=== PATIENT | female | born 2000 | race Caucasian/White ===

== ENCOUNTER 2024-04-28 14:49 | Emergency (ER) | payer BC, OTHER ==
[~2024-04-28] VITALS: Ht 165.1 cm; Wt 60.9 kg
[~2024-04-28 14:49] MED LIST: DEPO-MEDRO20 MG/1 ML INJ; MACROBID 100 M100 MG PO
[2024-04-28] MEDS ORDERED: SODIUM CHLORIDE 0.9% 1,000 ML IV PRN (15:45)
[2024-04-28] MEDS ORDERED: ondansetron HCL 4 MG/2 ML VIAL IV ONE (15:45)
[2024-04-28 16:00] LABS: BASOPHILS 0.4 % (0-2); EOSINOPHILS 0.2 % (0-6); HEMATOCRIT 32.1 % (35.0-50.0); HEMOGLOBIN 11.3 g/dL (12.0-18.0); LYMPHOCYTES 13.8 % (24-44); MCH 30.6 (27-36); MCHC 35.2 g/dl (30-36); MCV 86.9 fl (81-99); MONOCYTES 20.2 % (0-12); NEUTROPHILS 65.4 % (39-80); PLATELET COUNT 165 K/uL (140-440); RBC 3.69 M/ul (4.3-5.7); RDW 12.5 (10.5-15.0)
[2024-04-28 16:16] LABS: ALBUMIN 2.7 g/dL (3.4-5.0); ALBUMIN/GLOBULIN RATIO 0.68 (1.1-2.4); ANION GAP 12.7 (7-21); BILIRUBIN, TOTAL 0.2 ng/dL (0.2-1.0); BUN/CREATININE RATIO 12.76 (6.0-28.6); CALCIUM 8.5 mg/dL (8.5-10.1); CREATININE, SERUM 0.47 mg/dL (0.55-1.02); POTASSIUM 3.7 mmol/L (3.5-5.1); PROTEIN, TOTAL 6.7 g/dL (6.4-8.2)
[2024-04-28 16:40] LABS: INFLUENZA B NAA NEGATIVE (NEGATIVE); RESPIRATORY SYNCYTIAL VIR NAA NEGATIVE (NEGATIVE)
[2024-04-28 16:47] LABS: BILIRUBIN, URINE NEGATIVE (negative); BLOOD/HGB, URINE LARGE (Negative); KETONE, URINE NEGATIVE (Negative); LEUK ESTERASE, URINE NEGATIVE (negative); NITRITE, URINE NEGATIVE (negative)
[2024-04-28 16:57] LABS: BACTERIA, URINE 1+ /hpf (negative); CRYSTALS, URINE NONE SEEN (0-1+); EPITHELIAL CELLS, URINE SQUAMOUS 4+ /lpf (0-1+); RED BLOOD CELLS, URINE >50 /hpf (0-5)
[2024-04-28 16:58] LABS: CASTS, URINE NONE SEEN \\lpf; COLLECTION TYPE, URINE CLEAN CATCH; REFLEX CULTURE, URINE No (No)
[2024-04-28 17:57] VITALS: BP 109/75
== END 2024-04-28 17:57 | disposition home or self-care (01) ==
LOC: ED 14:49
PROVIDERS: Emergency Medicine
DX: O98.512 Other viral diseases complicating pregnancy, second trimester (principal); U07.1 COVID-19; Z3A.23 23 weeks gestation of pregnancy
CPT/HCPCS: 36415; 80053; 81001; 83690; 85025; 87502; 99284; J7030; U0002

== ENCOUNTER 2024-10-01 02:54 | Observation (INO) | payer BC, OTHER ==
[~2024-10-01] VITALS: Ht 165.1 cm; Wt 65.8 kg
[2024-10-01] VITALS (7 sets, daily range): BP systolic 103–125; BP diastolic 52–80
[2024-10-01] MEDS ORDERED: ondansetron HCL 4 MG/2 ML VIAL IV ONE (03:15)
[2024-10-01] MEDS ORDERED: FAMOTIDINE 20 MG/ 2 ML VIAL IV ONE (03:30)
[2024-10-01] MEDS ORDERED: KETOROLAC TROMETHAMINE 30 MG/ML VIAL IV ONE (03:30)
[2024-10-01] MEDS ORDERED: LIDOCAINE & ANTACID 35 ML BTL PO ONE (03:30)
[2024-10-01 03:54] LABS: BASOPHILS 0.6 % (0-2); EOSINOPHILS 2.3 % (0-6); HEMATOCRIT 38.8 % (35.0-50.0); HEMOGLOBIN 12.7 g/dL (12.0-18.0); MCH 24.8 (27-36); MCHC 32.8 g/dl (30-36); MCV 75.6 fl (81-99); MONOCYTES 7.7 % (0-12); NEUTROPHILS 67.4 % (39-80); PLATELET COUNT 203 K/uL (140-440); RBC 5.13 M/ul (4.3-5.7); RDW 17.6 (10.5-15.0)
[2024-10-01] MEDS ORDERED: LACTATED RINGER'S 1,000 ML IV ONE (04:00)
[2024-10-01 04:09] LABS: ALBUMIN/GLOBULIN RATIO 0.98 (1.1-2.4); BILIRUBIN, TOTAL 0.3 mg/dL (0.2-1.0); BUN/CREATININE RATIO 27.84 (6.0-28.6); CALCIUM 9.6 mg/dL (8.5-10.1); CREATININE, SERUM 0.79 mg/dL (0.55-1.02); MAGNESIUM 2.2 mg/dL (1.8-2.4); PROTEIN, TOTAL 8.1 g/dL (6.4-8.2)
[2024-10-01] MEDS ORDERED: LACTATED RINGER'S 1,000 ML IV SCH (05:00)
[2024-10-01] MEDS ORDERED: ondansetron HCL 4 MG/2 ML VIAL IV PRN ×3 (05:00→12:15)
[2024-10-01] MEDS ORDERED: KETOROLAC TROMETHAMINE 30 MG/ML VIAL IV PRN (05:00)
[2024-10-01] MEDS ORDERED: metroNIDAZOLE/SODIUM CHLORIDE 500 MG/100 ML PIGGYBACK IV ONE (05:00)
[2024-10-01] MEDS ORDERED: CEFTRIAXONE SODIUM 2 GM in SODIUM CHLORIDE 0.9% 100 ML IV ONE (05:00)
[2024-10-01 05:05] LABS: INR 0.99 (0.80-1.30); PROTIME 12.9 Sec (11.2-14.2)
[2024-10-01] MEDS ORDERED: CEFTRIAXONE SODIUM 2 GM VIAL ONE (05:33)
--- NOTE | 2024-10-01 06:57 | NUR ---
SCHEDULED MEDICATIONS ADMIN PER MAR. PATIENT DENIES ANY OTHER NEEDS, CALL LIGHT IN REACH.
[2024-10-01] MEDS ORDERED: DEXTROSE 5% - LACTATED RINGERS 1,000 ML IV SCH (07:00)
[2024-10-01] MEDS ORDERED: PROCHLORPERAZINE EDISYLATE 10 MG/2 ML VIAL IV PRN (07:00)
[2024-10-01] MEDS ORDERED: HYDROmorphone HCL 1 MG/ML SYR IV PRN (07:00)
--- NOTE | 2024-10-01 07:11 | NUR ---
REPORT RECEIVED FROM PLASMA PROCESSING TECHNICIAN RN DAVID. PATIENT IS SITTING UP IN BED AND PUMPING. PATIENT MOM IS IN THE ROOM. PATIENT WITH NO COMPLAINTS OF PAIN. PATIENT STATED NO FURTHER NEEDS AT THIS TIME. CALL LIGHT AND PERSONAL BELONGINGS ARE WITHIN REACH.
[2024-10-01] MEDS ORDERED: OXYCODONE HCL 5 MG TAB PO PRN (07:15)
[2024-10-01] MEDS ORDERED: IBUPROFEN 800 MG TAB PO PRN (07:15)
[2024-10-01] MEDS ORDERED: ACETAMINOPHEN 325 MG TAB PO PRN (07:15)
--- NOTE | 2024-10-01 07:45 | NUR ---
0900 MEDICATION ADMINISTERED PER THE EMAR. D5LR @100 ML/HR IS IN THE ROOM TO BEGIN AFTER FLAGYL DOSE IS COMPLETE. FULL ASSESSMENT COMPLETE AND DOCUMENTED IN THE CHART. PATIENT IS ALERT AND ORIENTED TIMES FOUR. PATIENT WITH NO COMPLAINTS OF PAIN OR NAUSEA AT THIS TIME. PATIENT WITH NORMAL S1 AND S2 ON AUSCULTATION. RADIAL AND PEDAL PULSES ARE STRONG BILATERALLY. SENSATION INTACT WITH NO COMPLAINTS OF NUMBNESS OR TINGLING. NO EDEMA NOTED. SKIN INTACT WITH SCATTERED TATTOOS NOTED. PATIENT IS ON ROOM AIR WITH CLEAR LUNG SOUNDS BILATERALLY. PATIENT IS NPO AT THIS TIME. BOWEL TONES ARE ACTIVE IN ALL FOUR QUADRANTS. PATIENT IV SITE FLUSHED WITH 10 ML NORMAL SALINE. IV DRESSING IS CLEAN, DRY, AND INTACT. PATIENT LAST BM WAS 10/01/24. PATIENT MOM IS SITTING IN THE RECLINER AT BEDSIDE. PATIENT STATED NO FURTHER NEEDS AT THIS TIME. CALL LIGHT AND PERSONAL BELONGINGS ARE WITHIN REACH.
--- NOTE | 2024-10-01 08:15 | NUR ---
EDWARD SWAIN IN ROOM WITH PATIENT. NEW TOILET HAT PUT IN FOR URINE SAMPLE.
--- NOTE | 2024-10-01 08:18 | NUR ---
IV FLAGYL INFUSION COMPLETE. IV SITE FLUSHED WITH 10 ML NORMAL SALINE AND IV DRESSING IS CLEAN, DRY, AND INTACT. D5LR IS INFUSING AT 100 ML/HR. PATIENT MOTHER IS SITTING IN THE RECLINER AT BEDSIDE. PATIENT AND FAMILY STATED NO FURTHER NEEDS AT THIS TIME. CALL LIGHT AND PERSONAL BELONGINGS ARE WITHIN REACH.
[2024-10-01] MEDS ORDERED: ENOXAPARIN SODIUM 40 MG/0.4 ML SYR SUB-Q SCH (09:00)
[2024-10-01] MEDS ORDERED: FAMOTIDINE 20 MG/ 2 ML VIAL IV SCH (09:00)
--- NOTE | 2024-10-01 09:10 | NUR ---
VITAL SIGNS AND INTAKE AND OUTPUT TAKEN AND DOCUMENTED IN THE CHART. PRE-PROCEDURE WIPE DOWN COMPLETE. NEW GOWN AND LINENS ARE ON THE BED. PATIENT MOTHER IN THE ROOM AND ASSISTED PATIENT WITH WIPE DOWN. PATIENT IS BACK IN BED. D5LR CONTINUES TO RUN AT 100 ML/HR. PATIENT STATED NO FURTHER NEEDS AT THIS TIME. CALL LIGHT AND PERSONAL BELONGINGS ARE WITHIN REACH.
[2024-10-01] MEDS ORDERED: FLUOXETINE HCL20 MG PO (09:19)
[2024-10-01] MEDS ORDERED: FEROSUL325 MG PO (09:20)
[2024-10-01] MEDS ORDERED: TRINATAL RX 11 EACH PO (09:20)
--- NOTE | 2024-10-01 09:27 | NUR ---
[place] [facility] [place] MEETS OBSERVATION CRITERIA FOR CHOLECYSITIS. IMAGING POSITIVE FOR CHOLELITHIASIS AND CHOLECYSTITIS. IV TORADOL GIVEN FOR BILIARY COLIC. [facility] PPO OBS 10/01/24 @ 0703 ORDER MATCHES REG AUTHORIZED 10/01/24 TO 10/06/24, REF #[id number] PLAN TO DC TO HOME WHEN MEDICALLY CLEARED 10/02/2024
[2024-10-01] MEDS ORDERED: ALBUTEROL SULFATE 0.083% 3 ML VIAL INH PRN (09:30)
--- NOTE | 2024-10-01 09:30 | NUR ---
Spoke with Khadijah. She currently lives with her parents. Home has many steps,but she denies any issues getting in or out of the home. She does not use any DME. She has a new baby. Her only request is to be allowed to sleep as she woke up at 2 am. She states she has not had much sleep with the new baby. She plans on dc to home when cleared medically. Denies financial issues as she lives with her parents. Is currently in school to be an [employer]. Plans on dc to home when cleared medically.
--- NOTE | 2024-10-01 09:47 | NUR ---
MED REC COMPLETE
--- NOTE | 2024-10-01 10:01 | CONS ---
[facility] [address], [place] [address] Signed DATE OF CONSULTATION: 10/01/2024 CHIEF COMPLAINT: Epigastric abdominal pain. HISTORY OF PRESENT ILLNESS: Khadijah is a 24-year-old female I have known for many years along with her mom and dad. She is now six weeks after a vaginal delivery for her 1st child. She had quite a bit of heartburn during the . The last night she had severe epigastric abdominal pain radiating through to her back with nausea and vomiting. She finally came to the emergency room with her mother. Her mother has been an OB nurse for many years. Her mom now works out at our [employer] building. She responded nicely to the Toradol. Lab showed normal white count with an AST up a little at 62 and alkaline phosphatase a little up at 133, but a normal lipase and a negative beta-hCG. Ultrasound was done and she has multiple small gallstones. The gallbladder wall is not thickened. The gallbladder is mildly distended and the common bile duct is normal at 5 mm. I was asked to admit her as a local general surgeon on-call. In the meantime, she is receiving her Rocephin and Flagyl currently. Her mom and our nurses are in the room. PAST MEDICAL HISTORY: Miscarriage and asthma. PAST SURGICAL HISTORY: Includes left elbow surgery at age [age] with metal remaining and right knee arthroscopy in 2013. SOCIAL HISTORY: She does not smoke or drink. She has one child born vaginally, a girl named Myrna. Her mother is Antonia at [phone]. Naomy Kerr is her primary care provider. She prefers the [facility]. FAMILY HISTORY: None. REVIEW OF SYSTEMS: She had 10 systems reviewed and really nothing to add as she is quite healthy other than the asthma. ALLERGIES: No known drug allergies, but she is allergic to fruit. MEDICATIONS: Albuterol p.r.n. Electronically Signed By: RJ SCHULER MD 10/01/24 1001 PATIENT NAME: KHADIJAH ROBERT CONSULTATION DATE OF : [birth year] REPORT #: [id number] PHYSICIAN: RJ SCHULER MD PCP: NAOMY KERR PAC REPORT IS CONFIDENTIAL AND NOT TO BE RELEASED WITHOUT AUTHORIZATION [facility] [address] [place], [place] [address] Signed PHYSICAL EXAMINATION: VITAL SIGNS: Her blood pressure is 121/80, heart rate 79, respiratory rate 16, temperature is 97.8, she is 100% on room air. She is 5 feet 5 inches tall at 65 kg with a body mass index of 24. GENERAL: Khadijah is a 24-year-old lady lying supine in her hospital bed. She is in no acute distress. She is not jaundiced. LUNGS: Clear to auscultation bilaterally. HEART: Regular rate and rhythm without murmurs. ABDOMEN: Soft, flat, nontender. LABORATORY DATA: Her white blood cell count is 6.3, hemoglobin 12, mean cell volume 75, neutrophils 67, platelets 203, creatinine 0.79, glucose 108, total bilirubin 0.3, AST 62, ALT 43, alkaline phosphatase is 133, albumin is 4.0, lipase 27, beta-hCG negative. RADIOGRAPHIC STUDIES: Ultrasound shows small gallstones. The gallbladder wall is not thickened. The gallbladder seems to be mildly distended. The common bile duct is unremarkable at 5 mm. ASSESSMENT AND PLAN: Khadijah is a 24-year-old young lady who presents with cholelithiasis and biliary colic. It has now improved with some IV fluids and Toradol. She has done well at the last hour so being admitted from our ER. She has already received the Rocephin and she is getting the Flagyl now. I brought with me a brochure on the gallbladder. We looked at it page by page. We discussed the location and function of the gallbladder and we discussed laparoscopic versus open cholecystectomy. She understands the expected intraop and postop course. There is risk including, but not limited to bleeding, infection, scarring, change in contour of the skin, damage to bowel, damage to main bile duct, incisional hernias and other unforeseen comorbidities. She has expressed understanding and would like to proceed with surgery today. We will add her on to follow later in the day. She has expressed understanding along with her mother and would like to proceed as above. Rj Schuler MD ALB/MODL /[id number] Electronically Signed By: RJ SCHULER MD 10/01/24 1001 PATIENT NAME: KHADIJAH ROBERT CONSULTATION DATE OF : 99 REPORT #: [id number] PHYSICIAN: RJ SCHULER MD PCP: NAOMY KERR [facility] REPORT IS CONFIDENTIAL AND NOT TO BE RELEASED WITHOUT AUTHORIZATION [place] [id number] [facility] [place], [place] [address] Signed cc: Naomy Schuler MD Copies: RJ SCHULER MD ~ Electronically Signed By: RJ SCHULER MD 10/01/24 1001 PATIENT NAME: KHADIJAH ROBERT CONSULTATION DATE OF : [birth year] REPORT #: [id number] PHYSICIAN: RJ SCHULER MD PCP: NAOMY KERR [facility] REPORT IS CONFIDENTIAL AND NOT TO BE RELEASED WITHOUT AUTHORIZATION
--- NOTE | 2024-10-01 10:05 | NUR ---
PATIENT RESTING IN BED WITH EYES CLOSED. EVEN AND UNLABORED RESPIRATIONS NOTED. SCD SILVERWARE SUPERVISOR AT END OF BED, READY FOR SURGERY. CALL LIGHT AND PERSONAL BELONGINGS WITHIN REACH.
--- NOTE | 2024-10-01 10:25 | NUR ---
PATIENT TAKEN OFF THE FLOOR BY OR NURSE AT THIS TIME.
[2024-10-01] MEDS ORDERED: SODIUM CHLORIDE 0.9% 40 ML IV ONE (10:35)
[2024-10-01] MEDS ORDERED: iopamidoL 30 ML VIAL ONE (10:35)
[2024-10-01] MEDS ORDERED: BUPIVACAINE HCL 0.25% 50 ML MDV ONE (10:36)
[2024-10-01] MEDS ORDERED: LIDOCAINE 1% W/ EPI 1:200,000 30 ML SDV ONE (10:36)
--- NOTE | 2024-10-01 11:07 | NUR ---
PATIENT REMAINS OFF THE FLOOR AT THIS TIME.
[2024-10-01] MEDS ORDERED: KETOROLAC TROMETHAMINE 30 MG/ML VIAL ONE (11:58)
[2024-10-01] MEDS ORDERED: DEXAMETHASONE SOD PHOS 4 MG/ML VIAL ONE (11:58)
[2024-10-01] MEDS ORDERED: KETAMINE in NS 50 MG/5 ML SYR ONE (11:58)
[2024-10-01] MEDS ORDERED: dexmedeTOMIDine HCl 200 MCG/2 ML VIAL ONE (11:58)
[2024-10-01] MEDS ORDERED: propofoL 200 MG/20 ML VIAL ONE (11:58)
[2024-10-01] MEDS ORDERED: fentaNYL citrate 100 MCG/2 ML VIAL ONE (11:58)
[2024-10-01] MEDS ORDERED: SCOPOLAMINE 1 MG/3 DAYS PATCH 1 EACH TDSY ONE (11:58)
[2024-10-01] MEDS ORDERED: ondansetron HCL 4 MG/2 ML VIAL ONE (11:58)
[2024-10-01] MEDS ORDERED: ROCURONIUM BROMIDE 50 MG/5 ML SYR ONE (11:59)
[2024-10-01] MEDS ORDERED: LIDOCAINE HCL 2% 5 ML SDV ONE (11:59)
[2024-10-01] MEDS ORDERED: droPERidol 5 MG/2 ML VIAL ONE (11:59)
[2024-10-01] MEDS ORDERED: ACETAMINOPHEN 1,000 MG/100 ML VIAL ONE (12:03)
[2024-10-01] MEDS ORDERED: fentaNYL citrate 50 MCG/ML SDV IV PRN (12:15)
[2024-10-01] MEDS ORDERED: NALOXONE HCL 0.4 MG SYR IV PRN (12:15)
[2024-10-01] MEDS ORDERED: IBLOOD GLUCOSE TEST STRIP 1 EA TEST VI PRN (12:15)
--- NOTE | 2024-10-01 12:46 | NUR ---
PATIENT REMAINS OFF THE FLOOR AT THIS TIME.
[2024-10-01] MEDS ORDERED: SUGAMMADEX SODIUM 200 MG/2 ML ML ONE (13:11)
--- NOTE | 2024-10-01 13:27 | NUR ---
PATIENT REMAINS OFF THE FLOOR AT THIS TIME.
--- NOTE | 2024-10-01 13:53 | NUR ---
10/01/24 1353 Annie Lara 1346-PATIENT ARRIVED TO PACU ON 6L MASK RR EVEN NONAROUSABLE SR HR 70'S. 4 LAP SITES TO ABDOMEN INTACT ICE APPLIED. IVF INFUSING.
--- NOTE | 2024-10-01 14:30 | NUR ---
PATIENT IS BACK FROM SURGERY AT THIS TIME. FOCUS ASSESSMENT COMPLETED. PATIENT IS DROWSY FROM PROCEDURE, BUT IS RESPONSIVE TO QUESTIONS. PATIENT IS ON ROOM AIR AT THIS TIME WITH CLEAR LUNG SOUNDS THROUGHOUT. CPOX AT BEDSIDE. PATIENT IS WITHOUT COMPLAINTS OF PAIN OR NAUSEA AT THIS TIME. IV FLUSHED WITH 10ML OF NS, DRESSING INTACT. IV FLUIDS INFUSING CONTINUOS AT 100ML/HR. LAP SITE DRESSINGS VISUALIZED. RIGHT UPPER QUADRANT DRESSING WITH SCANT AMOUNT OF SEROUS DRAINAGE. REPORT RECEIVED FROM EDWARD SHEPHERD FROM PACU. PATIENT DENIES ANY FURTHER NEEDS AT THIS TIME. BED ALARM ACTIVATED. CALL LIGHT AND PERSONAL BELONGINGS WITHIN REACH.
[2024-10-01] MEDS ORDERED: SEVOFLURANE 250 ML BTL INH ONE (15:20)
--- NOTE | 2024-10-01 15:33 | NUR ---
PATIENT RESTING IN BED WITH EYES CLOSED. EVEN AND UNLABORED RESPIRATIONS NOTED. PATIENT OPENED EYES WHEN THIS RN ENTERED ROOM. HOURLY VITALS TAKEN. VS STABLE. PATIENT IS WITHOUT COMPLAINTS OF PAIN OR NAUSEA AT THIS TIME. CPOX AT BEDSIDE. PATIENT DENIES ANY FURTHER NEEDS AT THIS TIME. CALL LIGHT AND PERSONAL BELONGINGS WITHIN REACH.
--- NOTE | 2024-10-01 16:13 | NUR ---
PATIENT RESTING IN BED WITH THEIR EYES CLOSED. EVEN AND UNLABORED RESPIRATIONS NOTED. CALL LIGHT AND PERSONAL BELONGINGS WITHIN REACH.
[2024-10-01] MEDS ORDERED: OXYCODONE HCL5 MG PO (16:31)
--- NOTE | 2024-10-01 16:49 | NUR ---
THIS RN VERIFIED WITH FBC RN JUNIOR REGARDING GIVING THIS PATIENT GETTING AN OXYCODONE FOR PAIN. FBC RN STATED IT IS SAFE TO ADMINISTER. NO FURTHER QUESTIONS OR CONCERNS. CALL ENDED.
--- NOTE | 2024-10-01 17:06 | NUR ---
PATIENT RESTING IN BED AND REPORTS 3/10 PAIN. PAIN MEDICATION ADMINISTERED PER EMAR. PATIENT UP TO BATHROOM WITH THIS RN PRESENT IN ROOM. PATIENT AMBULATED TO BATHROOM VIA SBA WITHOUT ASSISTANCE. PATIENT DENIES ANY DIZZINESS OR NAUSEA WITH AMBULATION. PATIENT BACK IN BED. IV INFUSING. CPOX AT BEDSIDE. FRESH GOWN AND ICE PACK GIVEN TO PATIENT. PUDDING, CRACKERS, AND PROTEIN SHAKE PROVIDED. PATIENT SLOWLY EATING AT THIS TIME. PATIENT DENIES ANY FURTHER NEEDS. CALL LIGHT AND PERSONAL BELONGINGS WITHIN REACH.
--- NOTE | 2024-10-01 17:33 | NUR ---
PATIENT ACTIVELY VOMITING AT THIS TIME. PATIENT RECEIVED 4MG ZOFRAN AT 1330 PER ANESTHESIA REPORT. PRN ORDER FOR 8MG ZOFRAN Q6P. DR SCHULER NOTIFIED ABOUT PATIENT STATUS. STATED TO GIVE PRN COMPAZINE. PATIENT ALSO ASKING ABOUT TAKE HOME ZOFRAN WITH OXYCODONE. STATED HE DOES NOT SEND ZOFRAN HOME WITH HIS PATIENT AND TO LET PATIENT KNOW IF THE 5MG OXY IS TOO MUCH, THE PATIENT CAN SPREAD THE DOSE OUT FURTHER OR JUST TAKE TYLENOL AND IBUPROFEN. CALL ENDED.
--- NOTE | 2024-10-01 17:39 | NUR ---
VITAL SIGNS AND INTAKE AND OUTPUT VALUES TAKEN. PATIENT IV REMOVED BUT THIS RN REMEMBERED THAT SHE WANTED IV NAUSEA MEDICATION. PATIENT EDUCATED ON THE OPTION TO GET A NEW IV OR TO WAIT ON THE COMPAZINE. PATIENT STATED TO NOT GET THE COMPAZINE. THIS RN APOLOGIZED. PATIENT STATED NO FURTHER NEEDS AT THIS TIME. CALL LIGHT AND PERSONAL BELONGINGS ARE WITHIN REACH.
--- NOTE | 2024-10-01 18:45 | OR ---
[facility] [address] [place], [place] [address] Signed DATE OF OPERATION: 10/01/2024 SURGEON: Rj Schuler MD PREOPERATIVE DIAGNOSES: Cholelithiasis, cholecystitis and biliary colic. POSTOPERATIVE DIAGNOSES: Cholelithiasis, cholecystitis and biliary colic. PROCEDURE: Laparoscopic cholecystectomy with intraoperative cholangiogram. ESTIMATED BLOOD LOSS: None. FINDINGS: The gallbladder was indeed moderately distended. Very few if any inflammatory changes. The intraoperative cholangiogram was unremarkable. She did have multiple small yellow cholesterol stones in her gallbladder. INDICATIONS: Khadijah is a 24-year-old female, who is now six weeks . I have known Khadijah and her family for many years. She had developed rather significant epigastric abdominal pain radiating through to her back with nausea and vomiting. She and her mom said it was quite awful. She came to the emergency room for evaluation. The white count was normal. The total bilirubin was 0.3, AST 62, ALT 43, alkaline phosphatase is 133, the lipase is 27 and the beta-hCG was negative. She responded very nicely to some Toradol. The ultrasound showed multiple small stones in her gallbladder and the gallbladder wall was not thickened. The common bile duct was unremarkable at 5 mm. The gallbladder was just a little bit dilated. I have been asked to admit her as a general surgeon on-call. I met with Khadijah and her mom earlier this morning. We gave her initial dose of Rocephin and Flagyl. I brought with me a brochure on the gallbladder. We discussed and reviewed the location and function of the gallbladder. We discussed laparoscopic versus open cholecystectomy. We reviewed the expected intraop and postop course. There is risk including, but not limited to bleeding, infection, scarring, change in contour of the skin, damage to bowel, damage to main bile duct, incisional hernias and other unforeseen comorbidities. She and her mom expressed understanding and wished to proceed. Her mom happens to be a registered nurse. She worked for many years in the OB department and now works out in our Health [facility]. She is very Electronically Signed By: RJ SCHULER MD 10/01/24 1845 PATIENT NAME: KHADIJAH ROBERT OPERATIVE REPORT DATE OF : 99 REPORT #: [id number] PHYSICIAN: RJ SCHULER MD PCP: ROULA KERR PAC REPORT IS CONFIDENTIAL AND NOT TO BE RELEASED WITHOUT AUTHORIZATION [facility] [address] [place], [place] [address] Signed familiar with this whole process. DESCRIPTION OF PROCEDURE: Khadijah was taken into the operating room and placed in the supine position under general endotracheal tube anesthesia. She was given the preoperative antibiotics along with subcutaneous Lovenox. SCDs were utilized. She was prepped and draped in the usual sterile fashion. All trocars were placed in their usual positions under direct visualization of the camera without difficulty. We took pictures throughout for photodocumentation. Indeed, the gallbladder was a little distended but no overt inflammation. The gallbladder was grasped and elevated in the right upper quadrant. The triangle of Calot was dissected out with [place] dissector. We inserted our intraoperative cholangiocatheter into the cystic duct. She is so thin at her young age and we could actually see her common bile duct as well. The intraoperative cholangiogram was found to be unremarkable. The contrast flowed nicely into the duodenum. We could not see any filling defects distally nor proximally or the cystic duct. We secured the cystic duct stump with a PDS Endoloop and two clips were placed across the cystic duct stump to anel its location. We also placed a clip across the cystic artery and it was divided. The gallbladder was then slowly and carefully removed from the gallbladder fossa with the help of cautery and placed into an EndoCatch bag. After this, the right upper quadrant was irrigated and suctioned out until clear. We used our laparoscopic suturing device to pass 0 Vicryl suture on either side of the fascia subxiphoid trocar site. This was tied down to close this fascia primarily. The gas was then allowed to escape. All trocars were removed along with the gallbladder. The gallbladder was passed off the table to our circulating nurse for photodocumentation. Indeed she had multiple small 3 may be 4 mm yellow cholesterol stones. We then closed the fascia of the supraumbilical trocar site with interrupted simple and [id number] 0 Vicryl sutures. Local anesthetic was injected into all trocar sites. Each trocar site was irrigated and suctioned out until clear. The skin and dermis of each trocar site was closed with interrupted 3-0 subcuticular and Monocryl sutures. Dry gauze and tape was applied to all incisions. Khadijah was awakened from her anesthesia, extubated in the OR and taken to the recovery room in stable condition. Rj Schuler MD ALB/MODL /[id number] Electronically Signed By: JR SCHULER MD 10/01/24 1845 PATIENT NAME: KHADIJAH ROBERT OPERATIVE REPORT DATE OF : 99 REPORT #: [id number] PHYSICIAN: RJ SCHULER MD PCP: ROULA KERR PAC REPORT IS CONFIDENTIAL AND NOT TO BE RELEASED WITHOUT AUTHORIZATION [facility] [address] [place], [place] [address] Signed cc: SILAS Kenney MD Copies: RJ SCHULER MD ~ Electronically Signed By: RJ SCHULER MD 10/01/24 1845 PATIENT NAME: KHADIJAH ROBERT OPERATIVE REPORT DATE OF : 99 REPORT #: [id number] PHYSICIAN: RJ SCHULER MD PCP: ROULA KERR PAC REPORT IS CONFIDENTIAL AND NOT TO BE RELEASED WITHOUT AUTHORIZATION
--- NOTE | 2024-10-05 14:48 | PATH ---
[facility] [address] [place], [place] [address] Signed SPECIMEN(S): A GALLBLADDER AND STONES SPECIMEN SOURCE: A. GALLBLADDER AND STONES CLINICAL HISTORY: Cholecystitis, cholelithiasis FINAL PATHOLOGIC DIAGNOSIS: Gallbladder, cholecystectomy: - Chronic calculous cholecystitis BRP MICROSCOPIC EXAMINATION: Histologic sections of all submitted blocks are examined by light microscopy. These findings, together with the gross examination, support the pathologic diagnosis. GROSS DESCRIPTION: The specimen, labeled and designated "Kalpesh, gallbladder and stones," is received in formalin and consists of Specimen: Previously opened gallbladder. Dimensions: 8.0 x 3.0 x 1.0 cm. Serosa: Lacona-madrid and smooth. Cystic Duct: Unobstructed, margin inked black and shaved. Calculi: Multiple yellow-madrid rounded calculi (0.1-0.3 cm in greatest dimension, and 2.0 x 0.5 x 0.5 cm in aggregate). Mucosa: Green-madrid and velvety with some yellow flecking. Wall thickness: 0.2-0.4 cm. Lymph node: No pericystic lymph nodes are grossly identified. Additional: None. Staffing Analyst sections are submitted in (A1). VB (under the direct supervision of a pathologist) The Gross Description was prepared using a voice recognition system. The report was reviewed for accuracy; however, sound-alike word errors, addition and/or deletions may occur. If there is any question about this report, please contact Client Services. ADDITIONAL NOTES: Immunohistochemical and/or in situ hybridization studies if performed in this case included appropriate positive controls that reacted as expected. This PATIENT NAME: BC ROBERT PATHOLOGY DATE OF : 99 REPORT #: [id number] PHYSICIAN: JAYLON HARP PCP: ROULA KERR PAC REPORT IS CONFIDENTIAL AND NOT TO BE RELEASED WITHOUT AUTHORIZATION [facility] [address] [facility] [place] [address] Signed test was developed and its performance characteristics determined by [facility]. It has not been cleared or approved by the U.S. Food and Drug Administration. The FDA has determined that such clearance or approval is not necessary. This test is used for clinical purposes. It should not be regarded as investigational or for research. [facility] is certified under the Clinical Laboratory Improvement Amendments of 1988 (CLIA) as qualified to perform high complexity clinical laboratory testing. PERFORMING LABORATORY: Technical component was performed by [facility], [address] [place] [id number] (CLIA# [id number]). Professional interpretation was performed by [facility], [address] [place] [address] (CLIA#: [id number]). Diagnostician: Jeanmarie Avila MD Pathologist Electronically Signed 10/05/2024 Copies: ~ PATIENT NAME: KALPESH,BC KAELYN PATHOLOGY DATE OF : 99 REPORT #: [id number] PHYSICIAN: JAYLON HARP PCP: ROULA KERR PAC REPORT IS CONFIDENTIAL AND NOT TO BE RELEASED WITHOUT AUTHORIZATION
== END 2024-10-01 18:05 | disposition home or self-care (01) ==
LOC: ED 02:54 → MS 02:56 → ED 04:56 → MS 18:05
PROVIDERS: Internal Medicine; ADMIT Colon & Rectal Surgery; ATTEND Colon & Rectal Surgery
PROC: 0FT44ZZ Resection of Gallbladder, Percutaneous Endoscopic Approach (ICD-10-PCS; principal; 2024-10-01 11:00)
DX: K80.10 Calculus of gallbladder with chronic cholecystitis without obstruction (principal)
CPT/HCPCS: 00790; 36415; 74300; 76705; 80053; 83690; 83735; 84703; 85025; 85610; 94762; 94799; 96372; A9270; G0378; J0131; J0696; J1100; J1650; J1790; J1885; J2003; J2405; J2704; J3010; J3490; J7121; Q9967

== ENCOUNTER 2025-02-14 09:28 | Emergency (ER) | payer BC, OTHER ==
[~2025-02-14] VITALS: Ht 165.1 cm; Wt 68.9 kg
[~2025-02-14 09:28] MED LIST changes: +FEROSUL325 MG PO; +FLUOXETINE HCL20 MG PO; +OXYCODONE HCL5 MG PO; +TRINATAL RX 11 EACH PO
[2025-02-14] MEDS ORDERED: FLUTICASONE PRO16 GM NAS (09:48)
[2025-02-14] MEDS ORDERED: ACETAMINOPHEN 500 MG TAB PO ONE (10:00)
[2025-02-14] MEDS ORDERED: METHOCARBAMOL500 MG PO (10:05)
[2025-02-14 10:18] VITALS: BP 145/96
== END 2025-02-14 10:18 | disposition home or self-care (01) ==
LOC: ED 09:28
DX: M54.50 Low back pain, unspecified (principal)
CPT/HCPCS: 99283; A9270